=== PATIENT | male | born 1995 | race Two or more races ===

== ENCOUNTER 2020-10-22 00:32 | Emergency (ER) | payer OTHER ==
[~2020-10-22] VITALS: Ht 185.4 cm; Wt 88.5 kg
[2020-10-22 00:33] VITALS: BP 128/86
== END 2020-10-22 03:15 | disposition left against medical advice (07) ==
LOC: ER 00:32
DX: N48.89 Other specified disorders of penis (principal); Z53.21 Procedure and treatment not carried out due to patient leaving prior to being seen by health care provider